=== PATIENT | female | born 1995 | race American Indian/Alaskan Native ===

== ENCOUNTER 2020-10-09 17:24 | Emergency (ER) | payer MEDICAID ==
[2020-10-09] MEDS ORDERED: LORazepam 0.5 MG Tab PO ONE ×2 (17:25→19:27)
[2020-10-09] MEDS ORDERED: ALPRAZolam 0.5 MG Tab PO ONE (17:25)
--- NOTE | 2020-10-09 19:34 | EDM.PDOC ---
ED HPI GENERAL MEDICAL PROBLEM - General Chief Complaint: General Stated Complaint: NEED TO GET "EKG" DONE PER PT Time Seen by Provider: 10/09/20 19:15 Source of Information: Reports: Patient History Limitations: Reports: No Limitations - History of Present Illness INITIAL COMMENTS - FREE TEXT/NARRATIVE: This 25 yo female patient reports to the ED from the [facility] to have an EKG done. The patient reports she was recently started on Zoloft, but was supposed to be taking 25 mg per day. The patient reports she has been taking 50 mg due some confusion over the directions. The patient reports she is very anxious at this time. The patient does have a history of long QT syndrom and has had cardiac problems in the past. The patient does have a pacemaker, but is concerned about having another cardiac episode. Duration: Day(s):, Constant, Getting Worse Location: Reports: Generalized Quality: Reports: Other Severity: Moderate Improves with: Reports: None Worsens with: Reports: None Context: Reports: Other Associated Symptoms: Reports: No Other Symptoms - Related Data Allergies Allergy/AdvReac Type Severity Reaction Status Date / Time diphenhydramine Allergy Tremors Verified 10/09/20 19:17 [From Benadryl] Home Meds: Home Meds Sertraline HCl [Zoloft] 50 mg PO DAILY 10/09/20 [History] Social & Family History - Tobacco Use Tobacco Use Status *Q: Never Tobacco User - Caffeine Use Caffeine Use: Reports: Coffee, Energy Drinks, Soda, Tea, Other - Recreational Drug Use Recreational Drug Use: Yes Recreational Drug Type: Reports: Marijuana/Hashish ED ROS GENERAL - Review of Systems Review Of Systems: Comprehensive ROS is negative, except as noted in HPI. ED EXAM, GENERAL - Physical Exam Exam: See Below Exam Limited By: No Limitations General Appearance: Alert, WD/WN, Anxious, Moderate Distress Eye Exam: Bilateral Eye: EOMI, Normal Inspection, PERRL Ears: Normal External Exam, Normal Canal, Hearing Grossly Normal, Normal TMs Nose: Normal Inspection, Normal Mucosa, No Blood Throat/Mouth: Normal Inspection, Normal Lips, Normal Teeth, Normal Gums, Normal Oropharynx, Normal Voice, No Airway Compromise Head: Atraumatic, Normocephalic Neck: Normal Inspection, Supple, Non-Tender, Full Range of Motion Respiratory/Chest: No Respiratory Distress, Lungs Clear, Normal Breath Sounds, No Accessory Muscle Use, Chest Non-Tender Cardiovascular: Normal Peripheral Pulses, Regular Rate, Rhythm, No Edema, No Gallop, No JVD, No Murmur, No Rub GI/Abdominal: Normal Bowel Sounds, Soft, Non-Tender, No Organomegaly, No Distention, No Abnormal Bruit, No Mass (Female) Exam: Deferred Rectal (Female) Exam: Deferred Back Exam: Normal Inspection, Full Range of Motion, NT Extremities: Normal Inspection, Normal Range of Motion, Non-Tender, Normal Capillary Refill, No Pedal Edema Neurological: Alert, Oriented, CN II-XII Intact, Normal Cognition, Normal Gait, Normal Reflexes, No Motor/Sensory Deficits Psychiatric: Anxious Skin Exam: Warm, Dry, Intact, Normal Color, No Rash Lymphatic: No Adenopathy #1 Interpretation EKG Date: 10/09/20 Time: 19:04 Rhythm: Other (paced rhythm) [place]: Normal P-Wave: Present QRS: Normal ST-T: Normal QT: Normal Course - Vital Signs Last Recorded V/S: Last Vital Signs Temp 97.7 F 10/09/20 19:05 Pulse 100 10/09/20 19:05 Resp 20 10/09/20 19:05 BP 118/79 10/09/20 19:05 Pulse Ox 100 10/09/20 19:05 - Orders/Labs/Meds Orders: Active Orders 24 hr Category Date Time Status EKG 12 Lead [EKG Documentation Completion] [RC] STAT Care 10/09/20 19:21 Active Meds: Medications Discontinued Medications Generic Name Dose Route Start Last Admin Trade Name Freq PRN Reason Stop Dose Admin Lorazepam 0.5 mg 10/09/20 19:27 10/09/20 19:44 Lorazepam 0.5 Mg Tab PO 10/09/20 19:28 0.5 mg ONETIME ONE Administration Departure - Departure Time of Disposition: 19:54 Disposition: Home, Self-Care 01 Condition: Fair Clinical Impression: Anxiety about health - Discharge Information *PRESCRIPTION DRUG MONITORING PROGRAM REVIEWED*: Not Applicable *COPY OF PRESCRIPTION DRUG MONITORING REPORT IN PATIENT DORITA: Not Applicable Instructions: Managing Anxiety, Adult Forms: ED Department Discharge Care Plan Goals: The patient was advised of the examination and EKG results during the visit. The patient was given an oral dose of Ativan while in the ED with some symptom improvement. The patient was discharged with Ativan (0.5 mg) #2 to take 1 by mouth every 6 hours as needed for anxiety. The patient was encouraged to follow- up with her primary care facility tomorrow for further evaluation and management. The patient was also encouraged to visit with a counselor. If the patient has any additional symptoms or concerns, the patient should either return to the emergency department or visit her primary care facility. Sepsis Event Note (ED) - Evaluation Sepsis Screening Result: No Definite Risk - Focused Exam Vital Signs: Vital Signs Temp Pulse Resp BP Pulse Ox 10/09/20 19:05 97.7 F 100 20 118/79 100 - My Orders Last 24 Hours: My Active Orders 10/09/20 19:21 EKG 12 Lead [EKG Documentation Completion] [RC] STAT - Assessment/Plan Last 24 Hours: My Active Orders 10/09/20 19:21 EKG 12 Lead [EKG Documentation Completion] [RC] STAT
[2020-10-09] MEDS ORDERED: LORazepam 0.5 MG Tab ONE (19:56)
== END 2020-10-09 20:12 | disposition home or self-care (01) ==
LOC: DL.ED 17:24
DX: F41.9 Anxiety disorder, unspecified (principal); Z88.8 Allergy status to other drugs, medicaments and biological substances
CPT/HCPCS: 93005; 93010; 99283-25; 99284; A9270-GY